=== PATIENT | female | born 1935 | race Caucasian/White ===

== ENCOUNTER 2020-05-26 17:49 | Inpatient (IN) | payer MEDICARE, OTHER ==
[~2020-05-26] VITALS: Ht 165.1 cm; Wt 62.1 kg
[2020-05-26] MEDS ORDERED: IV NS 0.9% 1,000 ML BAG IV ONE (18:00)
--- NOTE | 2020-05-26 18:00 | NUR ---
patient bibra from home, more altered than usual since 12 noon. On room air, breathing evenly and unlabored. connected to the monitor and pulse ox. kept comfortable, will continue to monitor accordingly. GT site in placed.
[2020-05-26 18:13] LABS: BASOPHILS # (AUTO) 0.1 /CMM (0.0-0.2); BASOPHILS % (AUTO) 0.3 % (0.0-2.0); EOSINOPHILS % (AUTO) 1.4 % (0.0-6.0); HEMATOCRIT 36 % (33-45); HEMOGLOBIN 11.7 g/dL (11.5-14.8); LYMPHOCYTES # (AUTO) 1.7 /CMM (0.8-4.8); LYMPHOCYTES % (AUTO) 8.3 % (20.0-44.0); MEAN CORPUSCULAR HGB CONC 33 g/dl (31.0-36.0); MEAN CORPUSCULAR VOLUME 101 fL (82-100); MONOCYTES # (AUTO) 1.8 /CMM (0.1-1.30); MONOCYTES % (AUTO) 8.5 % (2.0-12.0); NEUTROPHILS # (AUTO) 16.9 /CMM (1.8-8.9); NEUTROPHILS % (AUTO) 81.5 % (43.0-81.0); PLATELET COUNT (AUTO) 349 /CMM (150-450); RED BLOOD CELL COUNT(AUTO) 3.55 MIL/uL (4.0-5.2); WHITE BLOOD COUNT (AUTO) 20.8 K/uL (4.3-11.0)
--- NOTE | 2020-05-26 18:15 | NUR ---
blood drawned and urine collected and sent to lab
[2020-05-26 18:16] LABS: APPEARANCE,URINE Clear (CLEAR); BILIRUBIN,URINE Negative (NEGATIVE); BLOOD, URINE Negative Ery/uL (NEGATIVE); COLOR,URINE Yellow (YELLOW); KETONES,URINE Negative (NEGATIVE); LEUKOCYTE ESTERASE ,URINE Negative (NEGATIVE); NITRITE, URINE Negative (NEGATIVE); PROTEIN,URINE 30 mg/dl (NEGATIVE); UGLUCOSE Negative (NEGATIVE); UROBILINOGEN,URINE 0.2 EU/dL (0.2)
--- NOTE | 2020-05-26 18:20 | NUR ---
wheeled patient via gurney to ct scan
--- NOTE | 2020-05-26 18:27 | NUR ---
patient came back from ct
[2020-05-26 18:30] LABS: ALANINE AMINOTRANSFERASE 270 U/L (12-78); ALBUMIN 2.6 g/dL (3.4-5.0); ALKALINE PHOSPHATASE 151 U/L (46-116); ASPARTATE AMINOTRANSFERASE 154 U/L (15-37); BILIRUBIN,DIRECT 0.1 mg/dL (0.0-0.2); BILIRUBIN,TOTAL 0.4 mg/dL (0.2-1.0); CALCIUM, SERUM 9.3 mg/dL (8.5-10.1); CARBON DIOXIDE 29 mmol/L (21-32); CHLORIDE 109 mmol/L (98-107); CREATININE 0.8 mg/dL (0.6-1.3); GLUCOSE 100 mg/dL (74-106); POTASSIUM 4.2 mmol/L (3.5-5.1); SODIUM SERUM 145 mmol/L (136-145); TOTAL PROTEIN, SERUM 6.9 g/dL (6.4-8.2); UREA NITROGEN, BLOOD 34 mg/dL (7-18)
[2020-05-26 18:35] LABS: BACTERIA,URINE Rare /HPF (None Seen); RBC,URINE 0-2 /HPF (0-2); SQUAMOUS EPITHELIAL CELL,UR Many /HPF (None Seen); WBC,URINE 0-2 /HPF (0-3)
--- NOTE | 2020-05-26 19:09 | NUR ---
PT APPEARS TO BE RESTING COMFORTABLY IN BED. PT NODS TO YES/NO QUESTIONS.
--- NOTE | 2020-05-26 19:09 | NUR ---
report given to nurse olson for kelley
--- NOTE | 2020-05-26 19:42 | NUR ---
PT APPEARS TO BE RESTING COMFORTABLY. PT IS ABLE TO MOVE THE LUE AND LLE. RT SIDED WEAKNESS NOTED, PER REPORT AT CHANGE OF SHIFT. PT IS ON THE MONITOR AND POX. RESP ARE EVEN AND UNLABORED. VSS. WILL CONTINUE TO MONITOR THE PT.
--- NOTE | 2020-05-26 20:12 | NUR ---
PER PT'S DAUGHTER IN LAW, DARREL, STROKE ON 05/13/20 DUE TO AFIB. PT WAS TO BE ON BLOOD THINNERS, BUT WAS NOT AT THAT TIME. PT REC'D TPA AND SUFFERED A HEMMORAGE AND WAS TAKEN OFF ALL BLOOD THINNERS AT THAT TIME. [facility] IN [place] . BACTERIOLOGIST FISHERY WERE JACKIE AT [facility] AND THE THEIR NUMBER [phone]. NEUROLOGIST THERE WAS DR PAT. PT'S DAUGHTER IS SMITHA AND IS THE POA FOR THE PT. PT WAS RELEASED AND TAKEN HOME TO [place] BY PT'S DAUGHTER WHO IS A NURSE AND HAS HOME HEALTH. THE FAMILY WAS GOING TO GET PT INTO A REHAB. SMITHA CAN BE REACHED AT [phone]. THE PT'S OTHER DAUGHTER IS JOSH NGUYEN . DARREL Nielsen . PLEASE CALL SMITHA AND DARREL WITH UPDATES.
--- NOTE | 2020-05-26 20:12 | NUR ---
BED ASSIGNMENT 116-2
--- NOTE | 2020-05-26 20:19 | NUR ---
DR NGUYEN SPOKE TO THE PT'S DAUGHTERS SMITHA AND DARREL.
--- NOTE | 2020-05-26 20:29 | NUR ---
CALLING REPORT TO BLAKE GOMEZ
[2020-05-26] MEDS ORDERED: MAG HYDROX/AL HYDROX/SIMETH 30 ML UDC PO PRN (20:30)
[2020-05-26] MEDS ORDERED: Z GUARD REMEDY 2 OZ OINT TP PRN (20:30)
[2020-05-26] MEDS ORDERED: MAGNESIUM HYDROXIDE 30 ML UDC PO PRN (20:30)
[2020-05-26] MEDS ORDERED: HYDROCODONE/APAP 5/325MG 1 EACH TABLET PO PRN (20:30)
[2020-05-26] MEDS ORDERED: ONDANSETRON HCL/PF 4 MG/2 ML VIAL IVP PRN (20:30)
[2020-05-26] MEDS ORDERED: ACETAMINOPHEN 325 MG TABLET PO PRN (20:30)
[2020-05-26 20:50] VITALS: BP 135/80
--- NOTE | 2020-05-26 20:50 | NUR ---
RN NOTE PATIENT ARRIVED FROM ER VIA GURNEY ACCOMPANIED BY 2 RNS UNDER ACLS PROTOCOL. NO SIGNS OR DISTRESS OR DISCOMFORT AT THIS TIME. NON VERBAL . NOTED WITH RIGHT SIDED WEAKNESS. ABLE TO MOVE LEFT UPPER EXTREMITY TO FOLLOW COMMANDS. PT NPO FOR NOW. WITH 18G IV ON LEFT AC PATENT AND FLUSHES WELL. WITH PEG TUBE. SPOKE TO SMITHA (DAUGHTER ). ON TELE MONITOR SINUS RHTHYM. FULL CODE. SEIZURE PRECAUTIONS IN PLACE, CALL LIGHT WITHIN REACH, SAFETY MEASURES IMPLEMENTED, WILL MONITOR PATIENT.
[2020-05-26] MEDS ORDERED: IV NS 0.9% 1,000 ML IV ONE (21:00)
[2020-05-26] MEDS ORDERED: VANCOMYCIN 1 GM in IV D5W 250ml IV ONE (21:30)
[2020-05-26] MEDS ORDERED: VANCOMYCIN 1 GM VIAL ONE (21:53)
--- NOTE | 2020-05-26 22:10 | NUR ---
8320 SPOKE WITH PATIENT'S DAUGHTER SMITHA AND VERIFIED THAT PATIENT CODE STATUS IS DNR/DNI. RN JASON QURESHI.
[2020-05-27] VITALS (7 sets, daily range): BP systolic 117–155; BP diastolic 62–87
--- NOTE | 2020-05-27 06:47 | NUR ---
0645 spoke to RN exam will be done at 0800 yw
[2020-05-27 07:02] LABS: CALCIUM, SERUM 9.3 mg/dL (8.5-10.1); CREATININE 0.7 mg/dL (0.6-1.3); POTASSIUM 3.7 mmol/L (3.5-5.1)
[2020-05-27] MEDS ORDERED: FEE PK DOSING 1 MIN EA MC ONE (07:11)
--- NOTE | 2020-05-27 08:00 | NUR ---
GENARO RN OPENING NOTES RECEIVED PATIENT IN BED . PT UNDER ACLS PROTOCOL. NO SIGNS OR DISTRESS OR DISCOMFORT AT THIS TIME. NON VERBAL . NOTED WITH RIGHT SIDED WEAKNESS. ABLE TO MOVE LEFT UPPER EXTREMITY TO FOLLOW COMMANDS. PT NPO FOR NOW. WITH 18G IV ON LEFT AC PATENT AND FLUSHES WELL. WITH PEG TUBE. SPOKE TO SMITHA (DAUGHTER ). ON TELE MONITOR SINUS RHTHYM. FULL CODE. SEIZURE PRECAUTIONS IN PLACE, CALL LIGHT WITHIN REACH, SAFETY MEASURES IMPLEMENTED, WILL MONITOR PATIENT.
--- NOTE | 2020-05-27 08:56 | NUR ---
WOUND CARE CONSULT: REVIEWED CHART, NURSING DOCUMENTATION AND PHOTOS WHICH SHOW MULTIPLE AREAS OF BRUISING AND SKIN DISCOLORATION, PRESENT ON ADMISSION. RECOMMENDATIONS MADE FOR SKIN PROTECTION. DISCUSSED WITH NURSING STAFF. PT NOTED TO BE MOVING HER LEGS IN BED. WILL SEE PRN. FERNANDEZ IN AGREEMENT WITH PLAN OF CARE.
[2020-05-27] MEDS ORDERED: AMOX1TAB16 GT (08:57)
[2020-05-27] MEDS ORDERED: ATOR40TA GT (08:57)
[2020-05-27] MEDS ORDERED: METO25TA20 GT (08:57)
[2020-05-27] MEDS ORDERED: ACET-868 PO (08:57)
--- NOTE | 2020-05-27 09:00 | NUR ---
GENARO RN NOTES RN TAKING HER TO CT OF THE HEAD WITHOUT CONTRAST
[2020-05-27] MEDS ORDERED: VANCOMYCIN 0.75 GM in IV D5W 250 ML IV SCH (10:00)
[2020-05-27] MEDS: VANCOMYCIN 0.75 GM in IV D5W 250 ML IV SCH ×2 (10:27→22:19)
--- NOTE | 2020-05-27 11:51 | NUR ---
GENARO RN NOTES TALKED TO OMAR STROKE CONSULTATION
--- NOTE | 2020-05-27 12:00 | NUR ---
eoudi inventory coordinator notified regarding admission.
--- NOTE | 2020-05-27 13:55 | NUR ---
GENARO RN NOTES INFORMED DOCTOR FOR LIPID PANEL CHOLESTEROL ORDER, ANTICOAGULANT ORDER DUE TO PAT IS AFIB, AND DVT PUMPS.
--- NOTE | 2020-05-27 13:56 | NUR ---
GENARO RN NOTES RECEIVED DVT PUMP WILL PUT THEM IN
--- NOTE | 2020-05-27 14:37 | NUR ---
GENARO RN NOTES ANTICOAGULANT ARE CONTRAINDICATIONS
[2020-05-27 14:57] LABS: CHOLESTEROL 94 mg/dL (<200); HDL CHOLESTEROL 32 mg/dL (40-60); LDL 56 mg/dL (0-99); TRIGLYCERIDES 47 mg/dL (30-150)
[2020-05-27 15:43] LABS: BASOPHILS # (AUTO) 0.2 /CMM (0.0-0.2); BASOPHILS % (AUTO) 1.1 % (0.0-2.0); HEMATOCRIT 35 % (33-45); LYMPHOCYTES # (AUTO) 1.9 /CMM (0.8-4.8); LYMPHOCYTES % (AUTO) 11.8 % (20.0-44.0); MEAN CORPUSCULAR HGB CONC 31 g/dl (31.0-36.0); MEAN CORPUSCULAR VOLUME 102 fL (82-100); MONOCYTES # (AUTO) 1.1 /CMM (0.1-1.30); MONOCYTES % (AUTO) 6.6 % (2.0-12.0); NEUTROPHILS # (AUTO) 12.7 /CMM (1.8-8.9); NEUTROPHILS % (AUTO) 78.5 % (43.0-81.0); PLATELET COUNT (AUTO) 339 /CMM (150-450); RED BLOOD CELL COUNT(AUTO) 3.46 MIL/uL (4.0-5.2); WHITE BLOOD COUNT (AUTO) 16.2 K/uL (4.3-11.0)
--- NOTE | 2020-05-27 17:47 | NUR ---
GENARO RN NOTES PUT PATIENT'S DVT PUMP. HAS SIGHN OF FEEDING FROM RIGHT SIDE ON THE WALL. PT FROM NPO WENT TO PUREED DIET. PASS SWALLOW EVAL.
--- NOTE | 2020-05-27 17:49 | NUR ---
GENARO RN CLOSINGNOTE: PATIENT IS IN BED. PT IS ON NASAL CANNULA ON 2L PT SATURATED IN HER 98%. PT IS NPO. COVID TESTING STILL PENDING. NO SIGNS OF ACUTE DISTRESS NOTED. SAFETY MEASURES IMPLEMENTED, BED IN LOWEST POSITION, LOCKED, SIDE RAILS UP, CALL LIGHT WITHIN REACH. WILL ENDORSE TO WELL LOGGING OPERATOR MUD ANALYSIS FOR NENO.
[2020-05-28] VITALS: BP 128/81
[2020-05-28 04:00] VITALS: BP 139/81
[2020-05-28 07:09] LABS: BASOPHILS # (AUTO) 0.1 /CMM (0.0-0.2); BASOPHILS % (AUTO) 0.6 % (0.0-2.0); EOSINOPHILS % (AUTO) 2.6 % (0.0-6.0); HEMATOCRIT 34 % (33-45); HEMOGLOBIN 11.3 g/dL (11.5-14.8); LYMPHOCYTES # (AUTO) 1.7 /CMM (0.8-4.8); LYMPHOCYTES % (AUTO) 14.8 % (20.0-44.0); MEAN CORPUSCULAR HGB CONC 33 g/dl (31.0-36.0); MEAN CORPUSCULAR VOLUME 100 fL (82-100); MONOCYTES # (AUTO) 0.8 /CMM (0.1-1.30); MONOCYTES % (AUTO) 6.7 % (2.0-12.0); NEUTROPHILS # (AUTO) 8.6 /CMM (1.8-8.9); NEUTROPHILS % (AUTO) 75.3 % (43.0-81.0); PLATELET COUNT (AUTO) 302 /CMM (150-450); RED BLOOD CELL COUNT(AUTO) 3.46 MIL/uL (4.0-5.2); WHITE BLOOD COUNT (AUTO) 11.5 K/uL (4.3-11.0)
--- NOTE | 2020-05-28 07:10 | NUR ---
RN OPENING NOTES RECEIVED PT IN BED COMFORTABLY NONVERBAL, PATIENT IS AWAKE. PATIENT ON N/C 2L SATURATING @ 98%. PATIENT ON TELE READING AFIB CONTROLLED @ 89'S. BED IS IN LOWEST POSITION AND LOCKED , CALL LIGHT WITHIN EASY REACH. WILL CONTINUE TO MONITOR.
[2020-05-28 07:37] LABS: CALCIUM, SERUM 8.6 mg/dL (8.5-10.1); CREATININE 0.7 mg/dL (0.6-1.3); MAGNESIUM 1.7 mg/dL (1.8-2.4); PHOSPHORUS 3.6 mg/dL (2.5-4.9); POTASSIUM 3.8 mmol/L (3.5-5.1)
[2020-05-28 08:00] VITALS: BP 138/98
--- NOTE | 2020-05-28 10:30 | NUR ---
RN NOTES SPOKE TO OMAR RE:STROKE PROTOCOL, WILL EDUCATE FAMILY, WAITING ON BEATER OPERATOR CONSULT AND PT CONSULT, WILL ADD A CVA CARE PLAN.
[2020-05-28] MEDS: Magnesium 1GM/D5W 100ML PREMIX 100 ML IV SCH ×2 (10:37→11:37)
[2020-05-28] MEDS: VANCOMYCIN 0.75 GM in IV D5W 250 ML IV SCH ×2 (10:37→21:50)
[2020-05-28 12:00] VITALS: BP_SYST 118; BP_DIAS 62; BP_DIAS 99
--- NOTE | 2020-05-28 12:50 | NUR ---
RN NOTES ALEJANDRA PRESS TENDER CALLED , SHE WILL CALL FAMILY BECAUSE PATIENT IS NOVERBAL.
--- NOTE | 2020-05-28 13:42 | NUR ---
Social service consult requested by MD for stroke protocol. Per MD notes, pt is a 84-year-old female, patient is brought in by paramedics. Patient was recently admitted in [place], [place] for a stroke with right hemiplegia. Patient is living at home with family and was noticed to be slower than usual after a physical therapy session. MOTOR VEHICLE COMPLIANCE ANALYST conducted chart review and called pt's daughter/DPREUBEN Schneider, due to pt being non-verbal. MOTOR VEHICLE COMPLIANCE ANALYST introduced self, explained the role of the SW and purpose of the call. Per Jennie, pt has a history of stroke. Pt was residing with her significant in [facility] but suffered a stroke and was then living with her other daughter Jessy, who is a nurse. Pt has five children. Per Jennie, pt was independent prior to the second stroke. Pt suffered a stroke four years ago and then one recently. Since her most recent stroke, pt has been non-verbal. Pt is dependent for her ADLS and IADLS. Pt's daughter was assisting the pt at home with her daily living activities. Jennie reports, pt has a history of Anxiety and was medication for it but the medication was stopped after she suffered a stroke. Pt has no history of psychiatric hospitalizations. Pt has history of substance use. Per Jennie, pt use to drink beer and wine. At times, pt would binge drink and stop suddenly and restart again. Pt has no history of alcohol treatment program. Case management has been in touch with Jennie to discuss discharge planning. Jennie is aware that pt will be discharged to [facility] in [place]. MOTOR VEHICLE COMPLIANCE ANALYST provided dedrick Schneider with active listening, supportive counseling, emotional support and validation of feelings. MOTOR VEHICLE COMPLIANCE ANALYST informed Jennie to reach out to guest services attendant if she has any questions or concerns. Communications Project Lead will remain available for support as needed. Addendum: 05/28/20 at 1357 by ALEJANDRA ROCA MOTOR VEHICLE COMPLIANCE ANALYST completed PhQ-9 as per stroke protocol.
--- NOTE | 2020-05-28 15:17 | NUR ---
RN NOTES CALLED DAUGHTER SMITHA AT [phone] TO GIVE FAM EDUCATION, PER SMITHA TO HAVE MD GRAHAM CALL SISTER IN LAW (DARREL) @ [phone]. NOTIFIED DR GRAHAM TO [facility] CALL AND GIVE UPDATE, SPECIALLY ON HEAD CT SCAN.
[2020-05-28 16:00] VITALS: BP 119/50
--- NOTE | 2020-05-28 18:57 | NUR ---
RN CLOSING NOTE: WILL ENDORSE TO PM NURSE FOR NENO.PATIENT IS IN BED COMFORTABLY. PT IS ON N/C ON 2L SATURATING @98%. PATIENT ON TELE READING AFIB 100-116'S. COVID TESTING STILL PENDING. NO SIGNS OF ACUTE DISTRESS NOTED. SAFETY MEASURES IMPLEMENTED, BED IN LOWEST POSITION, LOCKED, SIDE RAILS UP, CALL LIGHT WITHIN REACH.
--- NOTE | 2020-05-28 19:45 | NUR ---
RN OPENING NOTE RECEIVED PT IN BED RESTING COMFORTABLY. PATIENT IS NONVERBAL BUT RESPONDS WITH GESTURES, NO S/SX OF ACUTE DISTRESS AT THIS TIME. PATIENT'S BREATHING IS EVEN AND UNLABORED. PATIENT IS ON 2 L OF OXYGEN VIA NC, TOLERATING WELL, SATURATING AT 100%. PATIENT ON TELE MONITOR READING AFIB CONTROLLED, HR IS @114. NOTED IV SITE AT RIGHT WRIST, WITH NS AT TKO; PATENT AND FLUSHING WELL, NO S/S OF INFECTION OR INFILTRATION. SAFETY MEASURES IMPLEMENTED PER PROTOCOL. PATIENT BED ALARM IS ON. HEAD OF BED ELEVATED. BED IS LOCKED, IN LOWEST POSITION AND SIDE RAILS UP. CALL LIGHT WITHIN REACH OF THE PATIENT. WILL CONTINUE TO MONITOR AND REASSESS FOR ANY CHANGES.
[2020-05-28 20:00] VITALS: BP_SYST 139; BP_DIAS 62; BP_DIAS 67
--- NOTE | 2020-05-28 20:00 | NUR ---
RN NOTE NOTED HR 114 AT REST. NO SIGN OF DISTRESS NOTED. REASSESSED AND REPOSITIONED PATIENT. HR RECHECKED AND REVEALED 92 BPM.
--- NOTE | 2020-05-28 20:20 | NUR ---
RN NOTE TELEPHONE FROM SMITHA, PATIENT'S DAUGHTER, ASKING FOR UPDATE REGARDING PATIENT. SAID SHE WAS INFORMED BY LAMBERTO LOZANO MD WILL CALL THEM. HOWEVER, DID NOT RECEIVE A CALL OF YET. ADVISED HER WILL ENDORSE TO MORNING RN MD NOT AVAILABLE AT NIGHT. SHE ACKNOWLEDGED.
[2020-05-29] VITALS (7 sets, daily range): BP systolic 122–154; BP diastolic 67–86
--- NOTE | 2020-05-29 07:01 | NUR ---
RN CLOSING NOTE PATIENT REMAINS IN ROOM. NO SIGNS OF RESPIRATORY/ACUTE DISTRESS NOTED. NOTED EDEMA OF LEFT ARM, ELEVATED WITH PILLOW, WARM COMPRESS PLACED OVER LEFT ARM TO REDUCE SWELLING. SAFETY MEASURES IMPLEMENTED, BED IN LOWEST POSITION, LOCKED, SIDE RAILS UP, CALL LIGHT WITHIN REACH. ENDORSED TO ONCOMING SHIFT RN FOR CONTINUATION OF CARE.
--- NOTE | 2020-05-29 07:30 | NUR ---
RECEIVED PATIENT IN BED. NO ACUTE DISTRESS NOTED. ALERT & ORIENTED X1, WITH CONFUSION. ON 2L O2 VIA NASAL CANNULA, SATURATING WELL AT 100%. ON TOE LASTER, Gia. FIB CONTROLLED WITH HEART RATE IN 80s. PATIENT ON STROKE PROTOCOL. PATIENT RIGHT WRIST IV ACCESS INFILTRATED. STARTED IV ACCESS ON LEFT HAND #24, INTACT, PATENT, FLUSHED WELL. SAFETY MAINTAINED. CALL LIGHT WITHIN REACH. WILL CONTINUE TO MONITOR.
[2020-05-29 08:02] LABS: CALCIUM, SERUM 8.5 mg/dL (8.5-10.1); CARBON DIOXIDE 27 mmol/L (21-32); CHLORIDE 103 mmol/L (98-107); CREATININE 0.7 mg/dL (0.6-1.3); GLUCOSE 103 mg/dL (74-106); POTASSIUM 4.1 mmol/L (3.5-5.1); SODIUM SERUM 140 mmol/L (136-145); UREA NITROGEN, BLOOD 19 mg/dL (7-18)
[2020-05-29] MEDS: VANCOMYCIN 0.75 GM in IV D5W 250 ML IV SCH ×2 (09:05→22:03)
--- NOTE | 2020-05-29 11:54 | NUR ---
ENDORSED PLAN OF CARE TO BLAKE RENO FOR CONTINUITY OF CARE. PATIENT IN STABLE CONDITION, NO ACUTE DISTRESS NOTED. PATIENT SAFETY MAINTAINED. CALL LIGHT WITHIN REACH.
--- NOTE | 2020-05-29 11:55 | NUR ---
SUB ASSEMBLY TEAM WORKER OPENING NOTES Received Patient resting in bed. Alert and nonverbal. VS stable with no acute distress. Breathing even and unlabored on 2LPM via NC with no respiratory distress. Denies pain. No signs and symptoms of pain. Telemonitor in place and patent reading Afib with HR-93. G-Tube in place, patent and clamped. 24g PIV on left hand clean, intact, patent and flushing well. Safety precautions in place. Bed locked and set to lowest position with side rails x 2 up. All needs rendered at this time. Call light within reach. Will continue to monitor.
[2020-05-29] MEDS: METOPROLOL TARTRATE 25 MG TABLET GT SCH (16:47)
--- NOTE | 2020-05-29 18:17 | NUR ---
NUT AND BOLT ASSEMBLER CLOSING NOTES Patient resting in bed. Alert and nonverbal. VS stable with no acute distress. Breathing even and unlabored on 2LPM via NC with no respiratory distress. Denies pain. No signs and symptoms of pain. Telemonitor in place and patent reading Afib with HR-89. G-Tube in place, patent and clamped. 24g PIV on left hand clean, intact, patent and flushing well. Safety precautions in place. Bed locked and set to lowest position with side rails x 2 up. All needs rendered at this time. Call light within reach. Will endorse plan of care to oncoming shift.
--- NOTE | 2020-05-29 20:50 | NUR ---
GENARO/RN ON INITIAL ROUNDING AT 1930, PATIENT WAS SLEEPING, APPEAR COMFORTABLE, BREATHING EVEN AND UNLABORED, CALL LIGHT IN REACH, FALL PRECAUTION PER PROTOCOL, WILL MONITOR.
[2020-05-29] MEDS ORDERED: ATORVASTATIN 40 MG TABLET GT SCH (22:00)
--- NOTE | 2020-05-29 22:26 | NUR ---
GENARO/RN PATIENT IS AWAKE AT THIS TIME, ALERT, DUE MEDS WERE GIVEN CRUSHED WITH APPLE SAUCE,TOLERATED WITHOUT COUGHING. WILL MONITOR.
--- NOTE | 2020-05-30 00:41 | NUR ---
GENARO/RN PATIENT IS AWAKE, ALERT, NO CHANGE IN CONDITION. ENDORSED TO MEIER RN FOR CONTINUITY OF CARE.
[2020-05-30 00:53] VITALS: BP 132/81
[2020-05-30 04:00] VITALS: BP 129/81
--- NOTE | 2020-05-30 06:52 | NUR ---
TURN OUT NOTES Pt in bed resting. Pt alert and nonverbal. VS stable with no acute distress noted throughout shift. Pt denies pain. Pt with G-Tube clamped. Pt noted with 24g PIV on left hand clean, intact, patent and flushing well. Safety measures in place with bed in lowest locked position with side rails up x2. Call light within reach. Will endorse to oncoming nurse for kelley.
[2020-05-30 07:22] LABS: BASOPHILS # (AUTO) 0.1 /CMM (0.0-0.2); BASOPHILS % (AUTO) 0.4 % (0.0-2.0); HEMATOCRIT 32 % (33-45); HEMOGLOBIN 10.5 g/dL (11.5-14.8); LYMPHOCYTES # (AUTO) 1.8 /CMM (0.8-4.8); LYMPHOCYTES % (AUTO) 13.6 % (20.0-44.0); MEAN CORPUSCULAR HGB CONC 33 g/dl (31.0-36.0); MEAN CORPUSCULAR VOLUME 99 fL (82-100); MONOCYTES # (AUTO) 1.1 /CMM (0.1-1.30); MONOCYTES % (AUTO) 7.9 % (2.0-12.0); NEUTROPHILS # (AUTO) 10.1 /CMM (1.8-8.9); NEUTROPHILS % (AUTO) 75.1 % (43.0-81.0); PLATELET COUNT (AUTO) 322 /CMM (150-450); RED BLOOD CELL COUNT(AUTO) 3.25 MIL/uL (4.0-5.2); WHITE BLOOD COUNT (AUTO) 13.4 K/uL (4.3-11.0)
--- NOTE | 2020-05-30 07:31 | NUR ---
RN NOTES Received Patient in bed resting comfortably in moderate high back rest. Alert and nonverbal. Breathing even and unlabored on 2LPM via NC. No signs of distress noted at this time. On Telemonitor in place and patent reading Afib with HR-80's. G-Tube in place, clamped. 24g PIV on left hand clean, intact, patent and flushing well. Safety precautions in place. Bed locked and set to lowest position with side rails up x 2. Call light within reach. Will continue to monitor.
[2020-05-30 08:00] VITALS: BP 121/79
[2020-05-30 08:02] LABS: CALCIUM, SERUM 8.6 mg/dL (8.5-10.1); CREATININE 0.8 mg/dL (0.6-1.3); MAGNESIUM 1.5 mg/dL (1.8-2.4); PHOSPHORUS 3.2 mg/dL (2.5-4.9)
[2020-05-30] MEDS: METOPROLOL TARTRATE 25 MG TABLET GT SCH (08:52)
[2020-05-30] MEDS: VANCOMYCIN 0.75 GM in IV D5W 250 ML IV SCH (09:12)
[2020-05-30] MEDS ORDERED: Magnesium 1GM/D5W 100ML PREMIX 100 ML IV SCH (10:32)
[2020-05-30] MEDS ORDERED: MAGNESIUM OXIDE 400 MG TABLET PO ONE (11:30)
[2020-05-30 12:00] VITALS: BP 144/86
[2020-05-30] MEDS ORDERED: CEPH-570 PO (13:17)
[2020-05-30 16:00] VITALS: BP 126/70
--- NOTE | 2020-05-30 16:41 | NUR ---
INSPECTOR AND CLERK NOTES PATIENT DISCHARGED IN STABLE CONDITION, NON VERBAL, A/O X 0, V/S TAKEN, STABLE AND RECORDED. IV ACCESS REMOVED AND APPLIED PRESSURE DRESSING, SKIN ASSESSMENT DONE, PICTURES TAKEN AND FILED ON CHART. NAME ARM BAND REMOVED. ALL BELONGINGS CHECK AND SIGNED. HEALTH TEACHINGS/DISCHARGE INSTRUCTION GIVEN, REPORT GIVEN TO BLAKE SANCHEZ AT [facility]. PATIENT WAS PICKED UP BY 2 AMBULANCE STAFF, LEFT UNIT VIA GURNEY AND WITH NO SIGNS OF DISTRESS NOTED. CHARGE NURSE AWARE OF DISCHARGED.
== END 2020-05-30 16:41 | DRG 64 ==
LOC: ER 17:53 → TELE1 20:12
PROVIDERS: ADMIT Nurse Practitioner Acute Care; ATTEND Student in an Organized Health Care Education/Training Program
DX: I62.9 Nontraumatic intracranial hemorrhage, unspecified (principal); A41.9 Sepsis, unspecified organism; G93.6 Cerebral edema; E44.0 Moderate protein-calorie malnutrition; I69.351 Hemiplegia and hemiparesis following cerebral infarction affecting right dominant side; J90 Pleural effusion, not elsewhere classified; J98.11 Atelectasis; I48.91 Unspecified atrial fibrillation; R40.2422 Glasgow coma scale score 9-12, at arrival to emergency department; R29.724 NIHSS score 24; I10 Essential (primary) hypertension; E78.5 Hyperlipidemia, unspecified; E03.9 Hypothyroidism, unspecified; R13.10 Dysphagia, unspecified; Z79.899 Other long term (current) drug therapy
CPT/HCPCS: 36415; 70450-TC; 71045-TC; 80048-TC; 80061-TC; 80076-TC; 80202-TC; 81000-TC; 82962-TC; 83605-TC; 83735-TC; 84100-TC; 84443-TC; 84484-TC; 85025-TC; 85385-TC; 85730-TC; 86850-TC; 87040-TC; 87081-TC; 92526; 92611-TC; 95819-TC; 97112-TC; 97530-TC; G0378; J3370; J3475; J3490; J7040; J7060; U0003-CS